=== PATIENT | female | born 1950 | race Caucasian/White ===

== ENCOUNTER 2016-09-14 09:20 | Day surgery (SDC) | payer OTHER ==
[~2016-09-14] VITALS: Ht 175.3 cm; Wt 131.5 kg
[~2016-09-14 09:20] MED LIST: ACCURETIC 201 TABLE1 PO; BACTRIM,SEPT1 TABLET PO; BIOTIN 5000MCG PO; CELEBREX200 MG PO; DILAUDID2 MG PO; FEOSOL325 MG PO; IRON325 M1 PO; LASIX40 MG PO; LOPRESSOR100 M1 PO; MELOXICAM15 MG PO; MOBIC15 MG PO; OXYCODONE HCL5 MG PO; PREDNISONE10 MG PO; TOPROL XL100 MG PO; TRAMADOL HCL50 MG PO; TYLENOL WITH C1 EACH PO; ULTRAM50 MG PO; VENTOLIN HFA18 GM IH; XARELTO10 MG PO; ZEBUTAL 50-3251 EACH PO
== END 2016-09-14 17:52 | disposition home or self-care (01) ==
LOC: CATH 09:20
PROC: 4A023N7 Measurement of Cardiac Sampling and Pressure, Left Heart, Percutaneous Approach (ICD-10-PCS; principal; 2016-09-14)
PROC: B2111ZZ Fluoroscopy of Multiple Coronary Arteries using Low Osmolar Contrast (ICD-10-PCS; principal; 2016-09-14)
PROC: 4A033BC Measurement of Arterial Pressure, Coronary, Percutaneous Approach (ICD-10-PCS; principal; 2016-09-14)
PROC: B2151ZZ Fluoroscopy of Left Heart using Low Osmolar Contrast (ICD-10-PCS; principal; 2016-09-14)
DX: I25.10 Atherosclerotic heart disease of native coronary artery without angina pectoris (principal); I34.0 Nonrheumatic mitral (valve) insufficiency; I10 Essential (primary) hypertension; I49.3 Ventricular premature depolarization; E66.9 Obesity, unspecified; Z68.41 Body mass index [BMI] 40.0-44.9, adult; Z85.828 Personal history of other malignant neoplasm of skin; Z96.659 Presence of unspecified artificial knee joint; Z88.8 Allergy status to other drugs, medicaments and biological substances
CPT/HCPCS: 85347; C1769; C1887; C1894; J0153; J1644; J2250; J3010; J7050

== ENCOUNTER 2016-09-17 22:18 | Inpatient (IN) | payer OTHER ==
[~2016-09-17] VITALS: Ht 175.3 cm; Wt 131.8 kg
[2016-09-18 06:14] VITALS: BP 139/84
[2016-09-18 11:24] VITALS: BP 134/69
[2016-09-18 13:00] VITALS: BP 135/65
[2016-09-18 15:49] VITALS: BP 114/56
[2016-09-18 18:16] LABS: HEMATOCRIT 33.2 % (36.0-46.0); MCV 86.9 FL (83-99)
[2016-09-18 19:30] VITALS: BP 94/55
[2016-09-18 22:26] VITALS: BP 106/53
[2016-09-19 00:30] VITALS: BP 114/55
[2016-09-19 03:44] VITALS: BP 122/58
[2016-09-19 06:16] LABS: ANION GAP 6 MEQ/L (2-14); CHLORIDE 103 MEQ/L (99-109); GFR ESTIMATE (CALCULATED) 52 mL/min/; GLUCOSE 113 mg/dL (70-99); POTASSIUM 3.8 MEQ/L (3.7-5.4); SAMPLE HEMOLYSIS CHECK 0; SAMPLE ICTERIC CHECK 0; SAMPLE LIPEMIA CHECK 0; SODIUM 139 MEQ/L (136-147); UREA NITROGEN (BUN) 28 mg/dL (9-23)
[2016-09-19 07:41] VITALS: BP 95/50
[2016-09-19 11:33] VITALS: BP 114/53
[2016-09-19 15:44] VITALS: BP 126/60
[2016-09-19 20:05] VITALS: BP 131/59
[2016-09-20 00:20] VITALS: BP 108/57
[2016-09-20 04:22] VITALS: BP 114/60
[2016-09-20 07:47] VITALS: BP 103/55
[2016-09-20] MEDS ORDERED: ELIQUIS2.5 MG PO (09:21)
[2016-09-20] MEDS ORDERED: OXYCODONE HCL5 MG PO (09:21)
[2016-09-20 11:48] VITALS: BP 103/53
== END 2016-09-20 14:05 | DRG 470 ==
LOC: ENRESERV 22:18 → 2SOUTH 09-18 05:26 → 3WEST 09-18 11:06 → 2SOUTH 09-18 11:10 → 3WEST 09-20 14:05
PROVIDERS: Orthopaedic Surgery
PROC: 0SRB0J9 Replacement of Left Hip Joint with Synthetic Substitute, Cemented, Open Approach (ICD-10-PCS; principal; 2016-09-18)
DX: M16.12 Unilateral primary osteoarthritis, left hip (principal); M06.9 Rheumatoid arthritis, unspecified; I10 Essential (primary) hypertension; I48.91 Unspecified atrial fibrillation; G43.909 Migraine, unspecified, not intractable, without status migrainosus; E78.00 Pure hypercholesterolemia, unspecified; J44.9 Chronic obstructive pulmonary disease, unspecified; Z96.653 Presence of artificial knee joint, bilateral; Z85.828 Personal history of other malignant neoplasm of skin
CPT/HCPCS: 80048; 85014; 85018; C1713; J0131; J0690; J1100; J1170; J1885; J2250; J2405; J3010; J7050; J7120; S0020

== ENCOUNTER 2017-09-04 05:36 | Day surgery (SDC) | payer OTHER ==
[~2017-09-04] VITALS: Ht 175.3 cm; Wt 143.0 kg
[~2017-09-04 05:36] MED LIST changes: +ELIQUIS2.5 MG PO; +ZETIA10 MG PO
[2017-09-04 07:04] VITALS: BP 135/71
[2017-09-04 10:43] VITALS: BP 143/64
[2017-09-04 16:34] VITALS: BP 140/61
[2017-09-04 19:30] VITALS: BP 142/68
[2017-09-04 23:15] VITALS: BP 160/74
[2017-09-05 04:15] VITALS: BP 152/72
[2017-09-05 08:46] VITALS: BP 135/74
== END 2017-09-05 12:48 | disposition home or self-care (01) ==
LOC: SDC 05:36 → 2SOUTH 08:51 → 2EAST 08:51 → 2SOUTH 08:51 → SDC 09:24 → ENRESERV 09:38 → 2EAST 10:20 → SDC 15:41 → 2EAST 09-05 12:48
PROC: 0RRK0J6 Replacement of Left Shoulder Joint with Synthetic Substitute, Humeral Surface, Open Approach (ICD-10-PCS; principal; 2017-09-04)
DX: M19.012 Primary osteoarthritis, left shoulder (principal); I10 Essential (primary) hypertension; J44.9 Chronic obstructive pulmonary disease, unspecified; M06.9 Rheumatoid arthritis, unspecified; I48.91 Unspecified atrial fibrillation; E78.00 Pure hypercholesterolemia, unspecified
CPT/HCPCS: C1776; G0378; J0131; J0330; J0690; J2250; J2270; J2405; J2795; J3010; J7050